=== PATIENT | female | born 1995 | race Caucasian/White ===

== ENCOUNTER 2017-11-05 23:49 | Emergency (ER) | payer BC ==
[~2017-11-05 23:49] MED LIST: ALBU8.5H12 IH; BIOCIDIN PO; CEPH500T7 PO; CHOL100062 PO; COLLAGEN PEPTIDES PO; DICY10CA11 PO; ENZY1CAP3 PO; ESTRODIM PO; GUAI120L3 PO; MAGN100T2 PO; METH4TAB66 PO; METR-160 PO; MIGRANOL PO; MITOCORE PO; ONDA4TAB PO; OSE75 PO; PRED-1 PO; PROBIATA ASDIRECTED; RIZA10TA24 PO; SUMA50TA34 PO; VANC125C3 PO; VANC1PLA4; Work Note; [UNRECOGNIZED DRUG - CODE] PO; [UNRECOGNIZED DRUG - OTHER] PO; [UNRECOGNIZED DRUG - OTHER] PO; [UNRECOGNIZED DRUG - OTHER] PO; [UNRECOGNIZED DRUG - REMARK] PO
[2017-11-06] MEDS ORDERED: NS(*) 0.9% 1000 ML BAG 1,000 ML IV ONE (00:02)
[2017-11-06] MEDS ORDERED: fentaNYL CITR 100 MCG/2 ML AMP IVP ONE (00:10)
[2017-11-06] MEDS ORDERED: ONDANSETRON 4 MG/2 ML VIAL IVP ONE (00:10)
[2017-11-06] MEDS ORDERED: KETOROLAC 30 MG/ML VIAL IVP ONE (00:10)
[2017-11-06 00:14] LABS: PLATELET COUNT, AUTOMATED 257 K/uL (150-450)
--- NOTE | 2017-11-06 00:39 | ER Report ---
History and Physical Time Seen By MD: 23:55 Hx. of Stated Complaint: LOWER ABD PAIN STARTED 3 HOURS AGO. DIARRHEA/NAUSEA/VOMITING. DENIES PROBLEMS WITH URINATION. HX OF C-DIFF HPI/ROS CHIEF COMPLAINT: Vomiting, diarrhea, abdominal cramps HISTORY OF PRESENT ILLNESS: 22-year-old female presents ambulatory to the ER complaining of vomiting and diarrhea since 9 PM. Severe lower abdominal crampy pain. She notes no recent travel exposure to ill contacts or consumption of bad food. She reports she was on antibiotics 2 months ago. She was on Keflex. Patient reports a distant history of 6. Clostridium difficile status post a course of Flagyl and vancomycin. She thinks it was approximately a year ago REVIEW OF SYSTEMS: Respiratory: No cough, no dyspnea. Cardiovascular: No chest pain, no palpitations. Gastrointestinal: As above Musculoskeletal: No back pain. Allergies: Coded Allergies: grass pollen (Verified Allergy, Unknown, 11/05/17) Home Meds Active Scripts Hydrocodone Bit/Acetaminophen (NORCO 5-325 TABLET) 1 Each Tablet, 1 EACH PO Q4H Y for PAIN, #12 TAB Prov:TAMIKO ENRIQUE Govind DO 11/06/17 Ondansetron (ZOFRAN ODT) 4 Mg Tab.rapdis, 4 MG PO every 6 hours Y for NAUSEA/ VOMITING, #15 TAB TAKE 1 TABLET BY MOUTH EVERY 12 HOURS Prov:TAMIKO ENRIQUE DO 11/06/17 Cephalexin 500 Mg Tab (KEFLEX 500 MG TAB) 500 Mg Tablet, 1 TAB PO QID for 10 Days, #40 TAB 0 Refills Prov:MARION HENRY DNP, FNP- 08/02/17 Dicyclomine Hcl (DICYCLOMINE HCL) 10 Mg Capsule, 1 CAP PO QID Y for STOMACH PAIN , #120 CAPSULE 2 Refills Prov:MARION HENRY DNP, FNP- 08/02/17 Ondansetron (ZOFRAN ODT) 4 Mg Tab.rapdis, 1 TAB PO Q12H Y for NAUSEA/VOMITING, # 10 TAB.ADORE 0 Refills Prov:MARION HENRY DNP, FNP-BC 04/05/17 Albuterol Sul Hfa 90 Mcg 8 Gm (VENTOLIN HFA 90 MCG 8 GM) 8.5 Gm Hfa.aer.ad, 2 PUFF IH Q4-6H, #8.5 MG TWO PUFFS EVERY FOUR TO SIX HOURS NEEDED Prov:TAMIKO ENRIQUE DO 04/09/14 Reported Medications [Probiata] No Conflict Check, 2 TSP ASDIRECTED 02/28/17 [Biocidin] No Conflict Check, 2 TAB PO TID 02/28/17 [place] Oil (CASTOR OIL) Unknown Strength Oil, PO DIRECTED 02/28/17 Cholecalciferol (Vitamin D3) (VITAMIN D) 10,000 Unit Capsule, 58038 UNIT PO QDAY , CAPSULE 02/28/17 Anne/Cell/Lipas/Malt/Prt/Lac/in (Digestive Enzymes Capsule) 220 Mg Capsule, 2 TAB PO with meals 02/28/17 Discontinued Reported Medications [A.d.p] No Conflict Check, 3 TAB PO TID 02/28/17 [Migranol] No Conflict Check, 4 TAB PO DIRECTED 02/28/17 [EstroDIM] No Conflict Check, 1-2 TAB PO QDAY 02/28/17 [[place] Pure] No Conflict Check, 1 TAB PO QDAY 02/28/17 Magnesium Citrate (MAGNESIUM CITRATE) Unknown Strength Tablet, PO QID 02/28/17 [Collagen Peptides] No Conflict Check, 2 UNIT PO QDAY 02/28/17 [Pepci-X] No Conflict Check, 1 TAB PO QDAY 02/28/17 [Stellar C] No Conflict Check, 2 TAB PO QDAY 02/28/17 [Mitocore] No Conflict Check, 4 TAB PO QDAY 02/28/17 Discontinued Scripts Guaifenesin/Codeine Phosphate (Codeine-Guaifen 10-100 mg/5 ml) 120 Ml Liquid, 1- 2 TSP PO Q6H Y for COUGH, #120 ML 0 Refills Prov:MARION HENRY DNP, FNP-BC 05/08/17 Oseltamivir Phosphate (TAMIFLU) 75 Mg Cap, 1 TAB PO BID, #10 CAP 0 Refills Prov:MARION HENRY DNP TRAVEL OCCUPATIONAL THERAPIST-BC 05/08/17 Rizatriptan Benzoate (MAXALT GROCERY CADDY) 10 Mg Tab.rapdis, 1 TAB PO PRN Y for MIGRAINE , #12 TAB 0 Refills Take one tab at onset of migraine. Repeat 1 tablet after 2 hours, if needed. Max: 30mg/24 hrs. Prov:MARION HENRY Violet DNP, TRAVEL OCCUPATIONAL THERAPIST-BC 04/24/17 Reviewed Nurses Notes: Yes Old Medical Records Reviewed: Yes Smoking Status: Never Smoker Hx Substance Use Disorder: No Hx Alcohol Use: No Constitutional Vital Sign - Last 24 Hours 11/05/17 11/05/17 11/06/17 11/06/17 23:55 23:55 00:00 00:19 Temp 98.2 Pulse 71 Resp 16 B/P (MAP) 124/73 124/73 (90) 127/79 (95) Pulse Ox 97 97 11/06/17 11/06/17 11/06/17 11/06/17 00:30 00:49 01:00 01:00 Pulse 85 70 B/P (MAP) 123/78 (93) 115/74 (88) Pulse Ox 95 93 93 11/06/17 11/06/17 11/06/17 01:30 01:38 01:41 Pulse 73 80 Resp 16 B/P (MAP) 114/70 (85) 109/69 (82) 106/76 (86) Pulse Ox 94 93 O2 Delivery Room Air Physical Exam General Appearance: The patient is alert, has no immediate need for airway protection and no current signs of toxicity. Vital signs stable, afebrile, pulse ox normal HEENT: Pupils equal and round no injection. Oropharynx without redness or exudate, mucous. Membranes are moist Respiratory: Chest is non tender, lungs are clear to auscultation. Cardiac: regular rate and rhythm Gastrointestinal: Abdomen is soft. Mild bilateral lower quadrant tenderness, no masses, bowel sounds normal. Musculoskeletal: Neck: Neck is supple and non tender. Extremities have full range of motion and are non tender. Skin: No rashes or lesions. DIFFERENTIAL DIAGNOSIS: After history and physical exam differential diagnosis was considered for gastroenteritis, viral syndrome, food poisoning, Clostridium difficile colitis. Medical Decision Making Data Points Result Diagram: 11/06/17 0005 11/06/17 0005 Laboratory Hematology Test 11/06/17 00:05 11/06/17 00:11 Red Blood Count 4.76 M/uL (4.17-5.56) Mean Corpuscular Volume 96.2 fL (80.0-96.0) Mean Corpuscular Hemoglobin 33.8 pg (26.0-33.0) Mean Corpuscular Hemoglobin Concent 35.1 g/dL (32.0-36.0) Red Cell Distribution Width 13.1 % (11.5-14.5) Mean Platelet Volume 8.6 fL (7.2-11.1) Neutrophils (%) (Auto) 55.3 % (39.4-72.5) Lymphocytes (%) (Auto) 34.5 % (17.6-49.6) Monocytes (%) (Auto) 7.5 % (4.1-12.4) Eosinophils (%) (Auto) 2.0 % (0.4-6.7) Basophils (%) (Auto) 0.7 % (0.3-1.4) Nucleated RBC Relative Count (auto) 0.0 /100WBC Neutrophils # (Auto) 5.5 K/uL (2.0-7.4) Lymphocytes # (Auto) 3.4 K/uL (1.3-3.6) Monocytes # (Auto) 0.8 K/uL (0.3-1.0) Eosinophils # (Auto) 0.2 K/uL (0.0-0.5) Basophils # (Auto) 0.1 K/uL (0.0-0.1) Nucleated RBC Absolute Count (auto) 0.00 K/uL Sodium Level 140 mmol/L (137-145) Potassium Level 3.6 mmol/L (3.5-5.0) Chloride Level 103 mmol/L (98-107) Carbon Dioxide Level 26 mmol/L (22-31) Blood Urea Nitrogen 17 mg/dl (7-18) Creatinine 0.80 mg/dl (0.52-1.04) Glomerular Filtration Rate Calc > 60.0 Random Glucose 104 mg/dl (75-110) Calcium Level 9.7 mg/dl (8.4-10.2) Total Bilirubin 0.2 mg/dl (0.2-1.3) Aspartate Amino Transf (AST/SGOT) 27 U/L (0-35) Alanine Aminotransferase (ALT/SGPT) 32 U/L (0-56) Alkaline Phosphatase 101 U/L (0-126) Total Protein 7.1 gm/dl (6.3-8.2) Albumin 4.1 g/dl (3.5-5.0) Amylase Level 102 U/L (0-110) Lipase 49 U/L (23-300) Human Chorionic Gonadotropin, Qual Negative (NEGATIVE) Urine Color Colorless Urine Clarity Clear Urine pH 7.0 pH (4.8-9.5) Urine Specific [place] 1.003 Urine Protein Negative mg/dL (NEGATIVE) Urine Glucose (UA) Negative mg/dL (NEGATIVE) Urine Ketones Negative mg/dL (NEGATIVE) Urine Blood Moderate (NEGATIVE) Urine Nitrite Negative (NEGATIVE) Urine Bilirubin Negative (NEGATIVE) Urine Urobilinogen Negative mg/dL (0.2-1.9) Urine Leukocyte Esterase Negative (NEGATIVE) Urine RBC <1 /HPF (0-2/HPF) Urine WBC <1 /HPF (0-5/HPF) Urine Squamous Epithelial Cells None /LPF (</=FEW) Urine Bacteria Few /HPF (NONE-FEW) Urine Mucus None /HPF (NONE-FEW) Stool Leukocytes, Qualitative Negative Clostridium Difficile Toxin A & B Negative Clostridium difficile Antigen Negative Chemistry Test 11/06/17 00:05 11/06/17 00:11 White Blood Count 10.0 k/uL (4.5-11.0) Red Blood Count 4.76 M/uL (4.17-5.56) Hemoglobin 16.1 g/dL (12.0-16.0) Hematocrit 45.8 % (34.0-47.0) Mean Corpuscular Volume 96.2 fL (80.0-96.0) Mean Corpuscular Hemoglobin 33.8 pg (26.0-33.0) Mean Corpuscular Hemoglobin Concent 35.1 g/dL (32.0-36.0) Red Cell Distribution Width 13.1 % (11.5-14.5) Platelet Count 257 K/uL (150-450) Mean Platelet Volume 8.6 fL (7.2-11.1) Neutrophils (%) (Auto) 55.3 % (39.4-72.5) Lymphocytes (%) (Auto) 34.5 % (17.6-49.6) Monocytes (%) (Auto) 7.5 % (4.1-12.4) Eosinophils (%) (Auto) 2.0 % (0.4-6.7) Basophils (%) (Auto) 0.7 % (0.3-1.4) Nucleated RBC Relative Count (auto) 0.0 /100WBC Neutrophils # (Auto) 5.5 K/uL (2.0-7.4) Lymphocytes # (Auto) 3.4 K/uL (1.3-3.6) Monocytes # (Auto) 0.8 K/uL (0.3-1.0) Eosinophils # (Auto) 0.2 K/uL (0.0-0.5) Basophils # (Auto) 0.1 K/uL (0.0-0.1) Nucleated RBC Absolute Count (auto) 0.00 K/uL Glomerular Filtration Rate Calc > 60.0 Calcium Level 9.7 mg/dl (8.4-10.2) Total Bilirubin 0.2 mg/dl (0.2-1.3) Aspartate Amino Transf (AST/SGOT) 27 U/L (0-35) Alanine Aminotransferase (ALT/SGPT) 32 U/L (0-56) Alkaline Phosphatase 101 U/L (0-126) Total Protein 7.1 gm/dl (6.3-8.2) Albumin 4.1 g/dl (3.5-5.0) Amylase Level 102 U/L (0-110) Lipase 49 U/L (23-300) Human Chorionic Gonadotropin, Qual Negative (NEGATIVE) Urine Color Colorless Urine Clarity Clear Urine pH 7.0 pH (4.8-9.5) Urine Specific [place] 1.003 Urine Protein Negative mg/dL (NEGATIVE) Urine Glucose (UA) Negative mg/dL (NEGATIVE) Urine Ketones Negative mg/dL (NEGATIVE) Urine Blood Moderate (NEGATIVE) Urine Nitrite Negative (NEGATIVE) Urine Bilirubin Negative (NEGATIVE) Urine Urobilinogen Negative mg/dL (0.2-1.9) Urine Leukocyte Esterase Negative (NEGATIVE) Urine RBC <1 /HPF (0-2/HPF) Urine WBC <1 /HPF (0-5/HPF) Urine Squamous Epithelial Cells None /LPF (</=FEW) Urine Bacteria Few /HPF (NONE-FEW) Urine Mucus None /HPF (NONE-FEW) Stool Leukocytes, Qualitative Negative Clostridium Difficile Toxin A & B Negative Clostridium difficile Antigen Negative Urinalysis Test 11/06/17 00:11 Urine Color Colorless Urine Clarity Clear Urine pH 7.0 pH (4.8-9.5) Urine Specific [place] 1.003 Urine Protein Negative mg/dL (NEGATIVE) Urine Glucose (UA) Negative mg/dL (NEGATIVE) Urine Ketones Negative mg/dL (NEGATIVE) Urine Blood Moderate (NEGATIVE) Urine Nitrite Negative (NEGATIVE) Urine Bilirubin Negative (NEGATIVE) Urine Urobilinogen Negative mg/dL (0.2-1.9) Urine Leukocyte Esterase Negative (NEGATIVE) Urine RBC <1 /HPF (0-2/HPF) Urine WBC <1 /HPF (0-5/HPF) Urine Squamous Epithelial Cells None /LPF (</=FEW) Urine Bacteria Few /HPF (NONE-FEW) Urine Mucus None /HPF (NONE-FEW) ED Course/Re-evaluation Clinical Indication for ER IV: Hydration, IV Access ED Course Patient was admitted to an examination room. H&P was done. The differential diagnoses was considered. On clinical examination. Patient has a benign nonsurgical abdomen. Patient's treated with IV fluid hydration. She feels much better. Her laboratory studies are unremarkable. Patient's diagnostic stool studies show a negative C. difficile. Think she just has food poisoning. I advised her that the diarrhea continues, she needs to follow-up with primary care for repeat C. difficile. Patient be discharged home advise cool liquid diet. Patient was given a limited supply of Lortab and Zofran. Decision to Disposition Date: Nov 06, 2017 Decision to Disposition Time: 01:04 Depart Departure Latest Vital Signs Vital Signs Date Time Temp Pulse Resp B/P (MAP) Pulse Ox O2 Delivery O2 Flow Rate FiO2 11/06/17 01:41 80 16 106/76 (86) 93 Room Air 11/05/17 23:55 98.2 Impression: Primary Impression: Vomiting and diarrhea Additional Impressions: Abdominal cramps Hx of Clostridium difficile infection Condition: Improved Disposition: HOME OR SELF-CARE Referrals: MARINO HENRY DNP, TRAVEL OCCUPATIONAL THERAPIST-BC (PCP) New Scripts Hydrocodone Bit/Acetaminophen (NORCO 5-325 TABLET) 1 Each Tablet 1 EACH PO Q4H Y for PAIN, #12 TAB Prov: TAMIKO ENRIQUE DO 11/06/17 Ondansetron (ZOFRAN ODT) 4 Mg Tab.rapdis 4 MG PO every 6 hours Y for NAUSEA/VOMITING, #15 TAB TAKE 1 TABLET BY MOUTH EVERY 12 HOURS Prov: TAMIKO ENRIQUE DO 11/06/17 Patient Instructions: Acute Diarrhea (ED), Clear Liquid Diet (ED) Additional Instructions: Follow clear liquid diet for 24-48 hours, then advance to Fredis diet, bananas, rice, applesauce and toast Follow-up with your primary care if unimproved in 3-5 days. Problem Qualifiers TAMIKO ENRIQUE DO Nov 06, 2017 00:40
[2017-11-06] MEDS ORDERED: HYDR-4309 PO (01:07)
[2017-11-06] MEDS ORDERED: ONDA4TAB PO (01:07)
[2017-11-06] MEDS ORDERED: ONDANSETRON 4 MG ODT TH SL ONE (01:25)
[2017-11-06] MEDS ORDERED: ACET/HYDROC 5/325MG TH ER ONLY 2 TAB/BOTTLE PO ONE (01:25)
[2017-11-06 01:41] VITALS: BP 106/76
== END 2017-11-06 01:43 | disposition home or self-care (01) ==
LOC: ER 23:53
DX: R10.30 Lower abdominal pain, unspecified (principal); R11.10 Vomiting, unspecified; R19.7 Diarrhea, unspecified
CPT/HCPCS: 81001; 82150; 83630; 83690; 84703; 85025; 87045; 87205; 87324; 87449; 96361; 96374; 96375; 99284; J1885; J2405; J3010; J7030; S0119; 82040; 82247; 82310; 82374; 82435; 82565; 82947; 84075; 84132; 84155; 84295; 84450; 84460; 84520

== ENCOUNTER → 2018-01-25 | Outpatient (CLI) | payer BC ==
[~2018-01-25] MED LIST changes: +HYDR-4309 PO
--- NOTE | 2018-01-25 09:44 | RADIOLOGY IMAGING REPORT ---
FACILITY: [facility] [place] PATIENT NAME: Ember Engel : 1995 MR: [id number] V: [id number] EXAM DATE: ORDERING PHYSICIAN: REGINALD COELLO TECHNOLOGIST: Location: [facility] Patient: Ember Engel : 1995 Visit/Account:[id number] Date of Sevice: 01/25/2018 EXAMINATION: Ultrasound abdomen right upper quadrant HISTORY: Abdominal pain, generalized. Recurrent nausea, vomiting and diarrhea. COMPARISON: CT abdomen and pelvis from 04/04/2017. FINDINGS: Gallbladder: No stones, wall thickening, pericholecystic fluid or sonographic Thomas sign. Liver: Elongated measuring 18.1 cm in length, due to Azalia's lobe which is a normal variant. Homoge neous parenchyma without focal lesion. Portal vein is patent with hepatopetal flow. Liver surface i s smooth. Common bile duct: Normal in size measuring 3.9 mm at the mode hepatis. Pancreas: Pancreatic head and body are normal in echogenicity. Pancreatic tail is obscured by bowel gas. Right kidney: Normal in size and echogenicity, measuring 10.5 cm in length. No hydronephrosis. Upper abdominal aorta and IVC: Negative. Ascites: None. IMPRESSION: 1. No cholelithiasis or acute cholecystitis. 2. Pancreatic tail is obscured by bowel gas. Report Dictated By: Maria Luisa Byrd MD at 01/25/2018 9:38 AM Report E-Signed By: Maria Luisa Byrd MD at 01/25/2018 9:40 AM WSN:[email or web address]
== END ==
LOC: US 07:15
PROVIDERS: ATTEND Internal Medicine Gastroenterology
DX: R10.84 Generalized abdominal pain (principal)
CPT/HCPCS: 76705

== ENCOUNTER → 2018-12-11 | Outpatient (CLI) | payer OTHER ==
[~2018-12-11] MED LIST changes: -HYDR-4309 PO; +HYDR-653 PO; -METR-160 PO; +METR500T15 PO; -VANC125C3 PO; +VANC125C4 PO
[2018-12-11 14:06] LABS: PLATELET COUNT, AUTOMATED 310 K/uL (150-450)
== END ==
LOC: LAB 13:47
PROVIDERS: ATTEND Nurse Practitioner Primary Care
DX: R10.9 Unspecified abdominal pain (principal)
CPT/HCPCS: 36415; 81001; 81025; 82040; 82150; 82247; 82310; 82374; 82435; 82565; 82947; 83690; 84075; 84132; 84155; 84295; 84450; 84460; 84520; 85025

== ENCOUNTER → 2018-12-14 | Outpatient (CLI) | payer OTHER ==
[~2018-12-14] MED LIST changes: +IOPAMIDOL 76% 100 ML INFUS BTL 0 ML ONE
== END ==
LOC: CT 01:29
PROVIDERS: ATTEND Nurse Practitioner Primary Care
DX: Z02.9 Encounter for administrative examinations, unspecified (principal)
CPT/HCPCS: Q9967